=== PATIENT | female | born 1940 | race Caucasian/White ===

== ENCOUNTER 2017-02-28 14:17 | Observation (INO) ==
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
[2017-02-28 16:25] LABS: URINE CULTURE NEEDED? NO; URINE MICRO REVIEW NEEDED? NO; URINE SOURCE CLEAN CATCH
[2017-02-28 16:29] LABS: BILIRUBIN URINE NEGATIVE (NEGATIVE); BLOOD URINE NEGATIVE (NEGATIVE); COLOR YELLOW; GLUCOSE URINE NEGATIVE (NEGATIVE); LEUKOCYTES URINE NEGATIVE (NEGATIVE); NITRITE URINE NEGATIVE (NEGATIVE); PROTEIN URINE NEGATIVE (NEGATIVE); SP GRAVITY URINE 1.007; TURBIDITY URINE CLEAR (CLEAR); UROBILINOGEN URINE NORMAL (NORMAL)
[2017-02-28 16:30] LABS: UR EPITHELIAL CELLS <10 /HPF (<10); URINE BACTERIA NEGATIVE /HPF; URINE RBC <10 /HPF (<10); URINE WBC <10 /HPF (<10)
[2017-02-28 16:39] LABS: UR AMPHETAMINES QUAL NONE DETECTED (NONE DETECT); UR BARBITUATES QUAL NONE DETECTED (NONE DETECT); UR BENZODIAZEPIN QUAL PRESUMPTIVE POSITIVE (NONE DETECT); UR CANNABINOIDS QUAL NONE DETECTED (NONE DETECT); UR COCAINE QUAL NONE DETECTED (NONE DETECT); UR METHADONE QUAL NONE DETECTED (NONE DETECT); UR OPIATES QUAL PRESUMPTIVE POSITIVE (NONE DETECT); UR OXYCODONE QUAL NONE DETECTED (NONE DETECT); UR PCP QUAL NONE DETECTED (NONE DETECT)
[2017-02-28 16:42] LABS: MANUAL DIFF NEEDED? NO
[2017-02-28 16:44] LABS: BASO% 0.4 % (0.0-0.8); EOS# 0.36 X1000 (0.0-0.7); EOS% 3.2 % (0.0-10.0); HEMATOCRIT 36.1 % (37.0-47.0); HEMOGLOBIN 12.3 g/dL (12.0-16.0); IMM GRAN# 0.02 X1000 (0.0-0.04); IMM GRAN% 0.2 % (0.0-0.5); LYMPH# 2.02 X1000 (1.2-3.4); LYMPH% 18.1 % (20.5-51.1); MCH 30.7 PG (27-31); MCHC 34.1 g/dL (33-37); MONO# 0.76 X1000 (0.11-0.59); MONO% 6.8 % (1.7-9.3); MPV 10.3 FL (7.4-10.4); NEUT% 71.3 % (42.2-75.2); PLT 359 X1000 (130-400); RBC 4.01 XMIL (4.2-5.4)
[2017-02-28 16:53] LABS: INR 0.96; PTT 26.4 Seconds (22.0-36.0)
[2017-02-28 17:06] LABS: AGAP 14; ALBUMIN 4.5 g/dL (3.5-5.0); ALKALINE PHOSPHATASE 77 U/L (32-104); BUN 12 mg/dL (8-22); CALCIUM 10.5 mg/dL (8.8-10.2); CHLORIDE 99 mmol/L (98-107); CK PROFILE 36 U/L (24-173); COSMO 280; GOT 15 U/L (10-30); GPT 10 U/L (10-36); POTASSIUM 3.9 mmol/L (3.5-5.1); SODIUM 139 mmol/L (136-145); TCO2 26 mmol/L (25-35); TOTAL PROTEIN 7.8 g/dL (6.3-8.3)
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
[2017-02-28] MEDS ORDERED: NS 1,000 ML IV ONE (18:43)
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
[2017-02-28] MEDS: NS 1,000 ML IV SCH (23:11)
--- NOTE | 2017-03-01 05:36 | EKG Report ---
Test Performed on : 02/28/2017 5:09:25 PM Test Reason : AMS Blood Pressure : / mmHG Vent. Rate : 070 BPM Atrial Rate : 070 BPM P-R Int : 174 ms QRS Dur : 082 ms QT Int : 424 ms P-R-T Axes : 064 022 -02 degrees QTc Int : 457 ms Normal sinus rhythm. Nonspecific ST and T wave abnormality Abnormal ECG No previous ECGs available Unconfirmed Result
[2017-03-01 06:52] LABS: MANUAL DIFF NEEDED? NO
[2017-03-01 06:55] LABS: BASO% 0.6 % (0.0-0.8); EOS# 0.31 X1000 (0.0-0.7); EOS% 3.8 % (0.0-10.0); HEMATOCRIT 32.2 % (37.0-47.0); HEMOGLOBIN 10.8 g/dL (12.0-16.0); LYMPH# 1.88 X1000 (1.2-3.4); LYMPH% 22.8 % (20.5-51.1); MCH 30.3 PG (27-31); MCHC 33.5 g/dL (33-37); MCV 90.4 FL (81-99); MONO# 0.63 X1000 (0.11-0.59); MONO% 7.6 % (1.7-9.3); MPV 10.8 FL (7.4-10.4); NEUT% 65.2 % (42.2-75.2); PLT 275 X1000 (130-400); RBC 3.56 XMIL (4.2-5.4)
[2017-03-01 07:11] LABS: AGAP 11; ALBUMIN 3.8 g/dL (3.5-5.0); ALKALINE PHOSPHATASE 67 U/L (32-104); BUN 9 mg/dL (8-22); CALCIUM 9.7 mg/dL (8.8-10.2); CHLORIDE 105 mmol/L (98-107); COSMO 286; GOT 12 U/L (10-30); GPT 7 U/L (10-36); POTASSIUM 3.9 mmol/L (3.5-5.1); SODIUM 143 mmol/L (136-145); TCO2 27 mmol/L (25-35); TOTAL BILIRUBIN 0.49 mg/dL (0.20-1.00); TOTAL PROTEIN 6.4 g/dL (6.3-8.3)
[2017-03-01 07:24] LABS: FREE T4 1.26 ng/dL (0.93-1.70)
[2017-03-01 08:00] VITALS: BP 174/76
[2017-03-01] MEDS ORDERED: GLUCOPHAGE PO SCH (08:00)
[2017-03-01] MEDS ORDERED: PRINIVIL PO SCH (09:00)
[2017-03-01] MEDS ORDERED: LIPITOR PO SCH (09:00)
[2017-03-01] MEDS: NS 1,000 ML IV SCH (09:18)
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
--- NOTE | 2017-03-01 15:51 | ECHO REPORT ---
ORDER DATE: 02/28/2017 DATE OF STUDY: 03/01/2017. MEASUREMENTS: Left ventricular end-diastolic diameter 4.8, end-systolic diameter 3.0, posterior wall thickness 1.1, septal thickness 1.1. Left atrium 3.9, aortic root 3.6 SUMMARY: 1. Adequate quality study. 2. Aortic valve is trileaflet and opens normally on 2-dimensional images. Mild mitral annular calcification is demonstrated. There is very mild mitral regurgitation. Tricuspid and pulmonic valves are without structural abnormality with trace tricuspid regurgitation and mild pulmonic insufficiency. The estimated systolic PA pressure is approximately 30 mmHg. Aortic root is normal size. 3. Normal left ventricular chamber size with borderline concentric left hypertrophy is demonstrated. Estimated left ejection fraction is greater than 65%. No regional wall motion abnormality is evident. Doppler suggests normal left ventricular diastolic function. Left atrium is mildly enlarged. Right atrium and right ventricle are normal in size with grossly preserved right ventricular systolic function. 4. No pericardial effusion. 5. Appearance of inferior vena cava suggests normal central venous pressure. 6. Sinus rhythm during study. CONCLUSIONS: 1. Mild mitral annular calcification with very mild mitral regurgitation. 2. Trace tricuspid regurgitation with estimated systolic PA pressure of 30 mmHg. 3. Borderline concentric left hypertrophy with estimated left ejection fraction greater than 65%. 4. Mild left atrial enlargement. cc: MD Gilberto Smith MD
--- NOTE | 2017-03-01 17:45 | Carotid Study ---
DATE: 03/01/2017 PROCEDURE: Carotid duplex imaging. REFERRING PHYSICIAN: Dr. William INTERPRETING PHYSICIAN: Dr. Lopez TECH: [place] INDICATIONS: The patient has altered mental status. OBSERVED DATA RIGHT LEFT Brachial Blood Pressure Carotid Pulse Bruits: Carotid/Sub DIAGRAM OF ULTRASOUND IMAGING R L RIGHT INT EXT INT EXT LEFT Braulio (cm/s) Braulio (cm/s) Subclavian 69/0 Subclavian 89/0 CCA Proximal 62/9 CCA Proximal 44/11 CCA Distal 58/14 CCA Distal 48/14 Bulb 95/22 Bulb 45/12 ICA Proximal 72/18 ICA Proximal 64/16 ICA Mid 86/18 ICA Mid 79/25 ICA Distal 85/22 ICA Distal 82/19 ECA 155/21 ECA 478/76 Vertebral Antegrade, 49/12 Vertebral Antegrade, 59/16 ICA/CCA Ratio 1.5 ICA/CCA Ratio 1.6 % Stenosis 0-39 % Stenosis 0-39 FINDINGS: There is plaque disease in both carotid bulbs. Both are somewhat heterogeneous in character. There is coincidentally noted a right thyroid cyst. No significant stenosis is present. INTERPRETATION: Bilateral carotid bulb plaque but it does not produce a stenosis of any consequence. There is a left external carotid stenosis. There is coincidentally noted a right thyroid cyst. Antegrade flow is present bilaterally. cc: MD Gilberto Wilburn MD
== END 2017-03-01 11:27 | disposition home or self-care (01) ==
LOC: 3N 14:17 → ED 14:17 → SUATTDRO 20:34 → OBSVTOIN 20:34 → INTOOBSV 20:34
PROVIDERS: ATTEND Internal Medicine